=== PATIENT | female | born 1995 | race Caucasian/White ===

== ENCOUNTER → 2017-12-01 | Outpatient (CLI) | payer OTHER ==
[2017-12-01 12:42] LABS: HEMOGLOBIN A1C 5.8 % (4.5-5.6)
[2017-12-01 13:22] LABS: ALBUMIN 3.4 gm/dl (3.4-5.0); ALT/SGPT 32 U/L (12-78); AST/SGOT 22 U/L (15-37); BLOOD UREA NITROGEN 14 mg/dl (7-18); CARBON DIOXIDE 28 mmol/L (21-32); CREATININE 0.87 mg/dl (0.60-1.20); GLUCOSE 88 mg/dl (70-99); POTASSIUM 4.2 mmol/L (3.5-5.1); SODIUM 138 mmol/L (136-145)
[2017-12-01 13:25] LABS: ALKALINE PHOSPHATASE 67 U/L (45-117); CHOLESTEROL 201 mg/dl (0-200); LDL CHOLESTEROL CALCULATED 110 mg/dl; TOTAL PROTEIN 7.5 gm/dl (6.4-8.2)
== END | disposition home or self-care (01) ==
LOC: C.LABBFT 07:56
PROVIDERS: ATTEND Physician Assistant Medical
DX: E88.81 Metabolic syndrome and other insulin resistance (principal)

== ENCOUNTER 2017-12-30 17:04 | Emergency (ER) | payer OTHER ==
[~2017-12-30] VITALS: Ht 170.2 cm; Wt 104.0 kg
[2017-12-30] MEDS ORDERED: PRED10TA PO (17:16)
[2017-12-30] MEDS ORDERED: AMOX250C3 PO (17:16)
[2017-12-30 17:41] VITALS: TEMP 36.8; Ht 170.2 cm; Wt 104.0 kg
[2017-12-30] MEDS ORDERED: IBUPROFEN 200 MG TAB PO STA (18:09)
[2017-12-30] MEDS ORDERED: TRAMADOL HCL 50 MG TAB PO STA (18:09)
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
--- NOTE | 2017-12-30 19:06 | DIAGNOSTIC IMAGING REPORT ---
L HAND MIN 3 VIEWS ROUTINE CLINICAL HISTORY: 22 years-old Female presenting with Left hand pain over the MCP joints. TECHNIQUE: Frontal, oblique, and lateral views of the left hand were obtained. COMPARISON: None. FINDINGS: No acute fracture or malalignment. No advanced degenerative change. No radiographic soft tissue abnormality. IMPRESSION: No acute osseous injury. Electronically signed by: Damon Sheridan M.D. 12/30/2017 7:04 PM Dictated Date/Time: 12/30/2017 7:03 PM
--- NOTE | 2017-12-30 19:18 | DIAGNOSTIC IMAGING REPORT ---
L FOREARM 2 VIEWS ROUTINE CLINICAL HISTORY: 22 years-old Female presenting with L mid forearm pain. TECHNIQUE: Frontal and lateral views of the left forearm were obtained. COMPARISON: None. FINDINGS: No acute fracture or malalignment. No advanced degenerative change. No radiographic soft tissue abnormality. IMPRESSION: No acute osseous injury. Electronically signed by: Damon Sheridan M.D. 12/30/2017 7:17 PM Dictated Date/Time: 12/30/2017 7:16 PM
[2017-12-30] MEDS ORDERED: TRAM-453 PO (19:56)
[2017-12-30] MEDS ORDERED: IBUP-1451 PO (19:56)
[2017-12-30] MEDS ORDERED: CYCL10TA6 PO (19:58)
[2017-12-30 20:08] VITALS: BP 121/71; PULSE 85; O2SAT 99
[2017-12-31] MEDS ORDERED: TRAM-453 PO (01:01)
== END 2017-12-30 20:11 | disposition home or self-care (01) ==
LOC: EDBD 17:04 → C.EDB 17:05
DX: T14.8XXA Other injury of unspecified body region, initial encounter (principal); V43.52XA Car driver injured in collision with other type car in traffic accident, initial encounter; Y92.410 Unspecified street and highway as the place of occurrence of the external cause